=== PATIENT | male | born 1940 | race Hispanic/Latino ===

== ENCOUNTER 2019-10-05 17:42 | Emergency (ER) | payer MEDICARE ==
[~2019-10-05] VITALS: Ht 165.1 cm; Wt 78.0 kg
[~2019-10-05 17:42] MED LIST: ACARBOSE25 MG PO; AMIODARONE HCL200 MG PO; ASPIRIN81 MG PO; CELEXA20 MG PO; DONEPEZIL HCL10 MG PO; FERROUS SULFAT325 MG PO; FINASTERIDE5 MG PO; GABAPENTIN300 MG PO; GLIPIZIDE10 MG PO; JANUVIA100 MG PO; LANTUS100 UNIT/1 SQ; LISINOPRIL2.5 MG PO; SIMVASTATIN20 MG PO; TERBINAFINE HC250 MG PO; TRADJENTA5 MG PO; TRAZODONE HCL100 MG PO; ULTRAM50 MG PO
[2019-10-05] MEDS ORDERED: TETANUS/DIPHTHERIA TOX ADULT 0.5 ML SYR IM ONE (19:00)
--- NOTE | 2019-10-05 20:22 | Diagnostic Imaging Report ---
History:Fell today Comparison studies:None Technique: Axial images were obtained from the skull base to the vertex. Coronal and sagittal images reconstructed from the axial data. Intravenous contrast: None Dose modulation, iterative reconstruction, and/or weight based adjustment of the mA/kV was utilized to reduce the radiation dose to as low as reasonably achievable. Findings: Scalp/skull: Occipital scalp hematoma without underlying fracture. Extra-axial spaces: No masses. No fluid collections. Brain sulci: Moderately prominent. Ventricles: Moderate compensatory dilatation. No hydrocephalus. Parenchyma: Few hypodensities in the supratentorial white matter are small vessel ischemic changes. No masses, hemorrhage, acute or chronic cortical vascular insults. Sellar/suprasellar region: No abnormalities. Craniocervical junction: Patent foramen magnum. No Chiari one malformation. Incidental findings: Atherosclerotic calcifications in the carotid siphons and vertebral arteries . Bilateral cataract surgery changes. Impression: No acute abnormalities. Chronic findings: 1. Moderate generalized volume loss. 2. Mild supratentorial white matter small vessel ischemic changes. Signed by: DR Sarkis Reich M.D. on 10/05/2019 8:18 PM
--- NOTE | 2019-10-05 20:40 | Diagnostic Imaging Report ---
History: Fell today Comparison studies: CT cervical spine 03/15/2014 Technique: Axial images were obtained through the cervical region.. Coronal and sagittal images reconstructed from the axial data.. Intravenous contrast: None Dose modulation, iterative reconstruction, and/or weight based adjustment of the mA/kV was utilized to reduce the radiation dose to as low as reasonably achievable. Findings: Fractures: None. Soft tissues: No gross abnormalities. Atlantoaxial articulation: Degenerative changes without acute abnormality. Alignment: Normal lordosis. No scoliosis. Cervicomedullary junction: No abnormalities. The foramen magnum is patent. Calcification of the ligamentum nuclei. Vertebrae: No infection or neoplasm. Degenerative changes: Anteriorly projecting osteophytes from C2 -C6, most consistent with DISH. Degenerative foraminal moderate right at C3-4, moderate left at C5, severe left at C6-7. IMPRESSION: 1. No acute cervical spine abnormalities. 2. Cannot exclude ligament, spinal cord and or vascular abnormalities on the basis of this examination. Signed by: DR Sarkis Reich M.D. on 10/05/2019 8:37 PM
== END 2019-10-05 21:40 | disposition home or self-care (01) ==
LOC: ER 17:42
DX: S01.01XA Laceration without foreign body of scalp, initial encounter (principal); W01.0XXA Fall on same level from slipping, tripping and stumbling without subsequent striking against object, initial encounter; Y92.002 Bathroom of unspecified non-institutional (private) residence as the place of occurrence of the external cause; E11.9 Type 2 diabetes mellitus without complications; E78.5 Hyperlipidemia, unspecified; Z86.73 Personal history of transient ischemic attack (TIA), and cerebral infarction without residual deficits; Z95.1 Presence of aortocoronary bypass graft
CPT/HCPCS: 70450; 72125; 99283